=== PATIENT | male | born 2000 | race Caucasian/White ===

== ENCOUNTER 2019-05-26 21:28 | Emergency (ER) | payer BC ==
[~2019-05-26] VITALS: Ht 193 cm; Wt 95.5 kg
[2019-05-26 21:32] VITALS: BP 156/60; TEMP 98.6
[2019-05-26] MEDS ORDERED: CEPHALEXIN500 M1 PO ×2 (22:18→23:14)
[2019-05-26 22:38] VITALS: PULSE 77
== END 2019-05-26 22:38 | disposition home or self-care (01) ==
LOC: COL.ER 21:28
DX: S06.0X0A Concussion without loss of consciousness, initial encounter (principal); S01.01XA Laceration without foreign body of scalp, initial encounter; S40.211A Abrasion of right shoulder, initial encounter; S60.416A Abrasion of right little finger, initial encounter; S60.412A Abrasion of right middle finger, initial encounter; S60.414A Abrasion of right ring finger, initial encounter; R40.2412 Glasgow coma scale score 13-15, at arrival to emergency department; V19.88XA Pedal cyclist (driver) (passenger) injured in other specified transport accidents, initial encounter

== ENCOUNTER → 2019-06-02 | Outpatient (CLI) | payer BC ==
[~2019-06-02] MED LIST: CEPHALEXIN500 M1 PO
[2019-06-02 11:31] VITALS: BP 131/81; PULSE 54; TEMP 99
== END ==
LOC: COL.ER 11:17
DX: Z48.02 Encounter for removal of sutures (principal)

== ENCOUNTER → 2019-09-06 | Outpatient (CLI) | payer BC | LOC: ZCOL.LAB 14:47 → EDBD 14:47 | DX: R05 Cough (principal); R06.02 Shortness of breath; Z20.828 Contact with and (suspected) exposure to other viral communicable diseases; R07.9 Chest pain, unspecified ==

== ENCOUNTER 2019-10-14 04:36 | Emergency (ER) | payer BC ==
[~2019-10-14] VITALS: Ht 175.3 cm; Wt 75.0 kg
[2019-10-14 04:43] VITALS: TEMP 98
[2019-10-14 04:51] LABS: BASO # 0.1 (0.0-0.2); BASO % 0.5 % (0.0-2.0); EOS # 0.3 (0.0-0.7); EOS % 3.4 % (0-4.0); GRAN # 4.9 (1.4-6.5); GRAN % 52.6 % (42.2-75.2); HEMATOCRIT 40.7 % (42.0-52.0); HEMOGLOBIN 13.9 g/dl (13.5-18.0); LYMPH # 3.3 (1.2-3.4); LYMPH % 36.2 % (20.0-51.0); MEAN CELL VOLUME 89 fl (80.0-100.0); MEAN CORPUSCULAR HEMOGLOBIN 31 pg (27.0-31.0); MEAN CORPUSCULAR HGB CONC 34 g/dl (33.0-37.0); MEAN PLATELET VOLUME 10.4 fl (7.4-10.4); MONO # 0.6 (0.1-0.6); MONO % 6.9 % (1.7-9.3); PLATELET COUNT 176 K/mm3 (130-400); RED BLOOD COUNT 4.56 M/mm3 (4.20-5.60); REDCELL DISTRIBUTION WIDTH-CV 12.2 % (11.5-14.5)
[2019-10-14 05:01] LABS: ALBUMIN 4.2 gm/dL (3.5-5.0); BILIRUBIN,TOTAL 1.2 mg/dL (0.0-1.0); CALCIUM 8.3 mg/dL (8.4-10.2); CREATININE, serum 1.12 (0.66-1.25); POTASSIUM 3.4 mmol/L (3.4-5.0); TOTAL PROTEIN 6.7 gm/dL (6.4-8.2)
[2019-10-14 07:17] VITALS: BP 111/78; PULSE 52
== END 2019-10-14 07:17 | disposition other institution (70) ==
LOC: COL.ER 04:36
PROVIDERS: Emergency Medicine
DX: S02.842A Fracture of lateral orbital wall, left side, initial encounter for closed fracture (principal); S02.832A Fracture of medial orbital wall, left side, initial encounter for closed fracture; S05.22XA Ocular laceration and rupture with prolapse or loss of intraocular tissue, left eye, initial encounter; H35.62 Retinal hemorrhage, left eye; F10.920 Alcohol use, unspecified with intoxication, uncomplicated; W27.8XXA Contact with other nonpowered hand tool, initial encounter; Y92.009 Unspecified place in unspecified non-institutional (private) residence as the place of occurrence of the external cause
CPT/HCPCS: J0690; J2270; J2405; J3010; Q9967